=== PATIENT | female | born 1940 | race Caucasian/White ===

== ENCOUNTER → 2022-03-24 07:36 | Outpatient (CLI) | payer MEDICARE, SELFPAY ==
--- NOTE | 2022-03-24 | DI.NM.S_ITS ---
PROCEDURE: NM UPTAKE AND SCAN RADIOPHARMACEUTICAL: 0.39 ?Ci I-123 sodium iodide by mouth. INDICATIONS: Thyrotoxicosis, unspecified without thyrotoxic crisis or sto TECHNIQUE: I-123 sodium iodide was administered orally. Anterior neck images were obtained, and iodine uptake by the thyroid gland calculated using slot attendant's software. COMPARISON: None. FINDINGS: Morphology: The thyroid gland demonstrates a questionable focus of increased activity within the right mid lobe. Uptake: 6 hour thyroid uptake is 24% ; normal ranges are from 6-18%. 24 hour thyroid uptake is 43% ; normal ranges are from 10-30%. IMPRESSION: Elevated 6 and 24 hour uptake. Questionable focus of increased activity within the right mid lobe. Dedicated thyroid ultrasound is recommended for further evaluation. Dictated by: Ana Ugalde M.D. on 03/25/2022 at 15:16 Approved by: Ana Ugalde M.D. on 03/25/2022 at 15:18
== END ==
PROVIDERS: Family Provider Internal Medicine; PCP Family Medicine; Referring Provider Physician Assistant; Visit Provider Physician Assistant
DX: E05.90 Thyrotoxicosis, unspecified without thyrotoxic crisis or storm (principal); E04.1 Nontoxic single thyroid nodule
CPT/HCPCS: 78014; A9516

== ENCOUNTER → 2022-04-04 11:03 | Outpatient (CLI) | payer MEDICARE, SELFPAY ==
--- NOTE | 2022-04-04 | DI.US.S_ITS ---
PROCEDURE: US THYROID INDICATIONS: Nontoxic single thyroid nodule TECHNIQUE: Real-time scanning was performed of the thyroid gland, with image documentation. COMPARISON: None. FINDINGS: The right thyroid measures 4.8 x 1.7 x 2.1 centimeters. The left thyroid measures 3.3 x 1.1 x 1.9 centimeters. The isthmus measures 0.4 centimeters. Nodule 1. In the right thyroid (superolateral) measures 1.0 x 0.8 x 1.0 centimeters. It is solid and hypoechoic. TR-4. Follow-up is recommended. Nodule 2. In the right mid/lateral region measures 1.0 x 0.5 x 1.3 centimeters. It is solid, lobulated, and hypoechoic. TR-4. Follow-up is recommended. Nodule 3. In the right inferolateral region measures 1.1 x 0.7 x 1.0 centimeters. It is solid, hypoechoic, with punctate calcifications. TR-5. FNA is recommended. Nodule 4: in the left superolateral region measuring 1.2 x 0.8 x 1.0 centimeters. It is solid, isoechoic, with punctate calcifications. TR-4. Follow-up is recommended. Nodule 5: In the left mid region Measures under 1 centimeter. No dedicated follow-up is necessary. Nodule 6: In the left mid medial region measuring 1.2 x 0.8 x 1.2 centimeters. It is cystic. No dedicated follow-up is necessary. IMPRESSION: Multinodular thyroid, recommendations above. Attention for nodule 3. Dictated by: Alex Yung M.D. on 04/04/2022 at 14:14 Approved by: Alex Yung M.D. on 04/04/2022 at 14:21
== END ==
PROVIDERS: Family Provider Internal Medicine; PCP Family Medicine; Referring Provider Physician Assistant; Visit Provider Physician Assistant
DX: E04.2 Nontoxic multinodular goiter (principal)
CPT/HCPCS: 76536